=== PATIENT | female | born 1980 | race Caucasian/White ===

== ENCOUNTER 2022-10-18 02:36 | Emergency (ER) | payer MEDICAID ==
[~2022-10-18] VITALS: Ht 162.6 cm; Wt 72.7 kg
[2022-10-18] MEDS: naproxen 500mg tablet PO ONE ×2 (03:35→03:37)
[2022-10-18 03:40] VITALS: BP 129/94
== END 2022-10-18 03:46 ==
LOC: ER 02:36
DX: S20.219A Contusion of unspecified front wall of thorax, initial encounter (principal); Z91.041 Radiographic dye allergy status; V49.9XXA Car occupant (driver) (passenger) injured in unspecified traffic accident, initial encounter; Y93.89 Activity, other specified; Y92.89 Other specified places as the place of occurrence of the external cause; Y99.8 Other external cause status
CPT/HCPCS: 99283